=== PATIENT | male | born 1995 | race African-American/Black ===

== ENCOUNTER 2019-09-08 01:07 | Emergency (ER) | payer OTHER, MEDICAID ==
[~2019-09-08] VITALS: Ht 172.7 cm; Wt 77.1 kg
[2019-09-08 01:12] VITALS: Ht 172.7 cm; Wt 77.1 kg
[2019-09-08] MEDS ORDERED: PROVIGIL200 MG PO (01:32)
[2019-09-08] MEDS ORDERED: GABITRIL16 MG PO (01:32)
[2019-09-08] MEDS ORDERED: ABILIFY15 M1 PO (01:32)
[2019-09-08] MEDS ORDERED: AMBIEN5 MG PO (01:33)
[2019-09-08] MEDS ORDERED: VIS50 PO (01:33)
[2019-09-08] MEDS ORDERED: MYORISAN PO (01:34)
[2019-09-08 03:02] VITALS: BP 126/71
== END 2019-09-08 03:02 | disposition home or self-care (01) ==
LOC: ED 01:07
DX: R00.1 Bradycardia, unspecified (principal)